=== PATIENT | female | born 1980 | race Hispanic/Latino ===

== ENCOUNTER 2024-11-07 07:30 | Day surgery (SDC) | payer BC ==
[2024-11-07] VITALS (10 sets, daily range): BP systolic 80–109; BP diastolic 44–69; PULSE 56–70; RESP 12–18; TEMP 97.2–97.8
[~2024-11-07] VITALS: Ht 157.5 cm; Wt 68.9 kg
[~2024-11-07 07:30] MED LIST: LISD40CA PO
[2024-11-07] MEDS: 0.9%NACL 1000ML 1,000 ML IV ONE (08:05)
[2024-11-07] MEDS ORDERED: proPOFol 10 MG/ML 20ML VIAL IV ONE ×2 (09:16→09:23)
[2024-11-07] MEDS ORDERED: PANT40TA PO (10:19)
== END 2024-11-07 10:58 | disposition home or self-care (01) ==
LOC: ENDO 07:30 → DAH 07:30 → ENDO 10:58
PROVIDERS: ATTEND Internal Medicine Gastroenterology
DX: R12 Heartburn (principal); K29.50 Unspecified chronic gastritis without bleeding; K31.89 Other diseases of stomach and duodenum; K86.2 Cyst of pancreas; R93.3 Abnormal findings on diagnostic imaging of other parts of digestive tract; K44.9 Diaphragmatic hernia without obstruction or gangrene; K21.9 Gastro-esophageal reflux disease without esophagitis; F41.9 Anxiety disorder, unspecified; F32.A Depression, unspecified; F90.9 Attention-deficit hyperactivity disorder, unspecified type; K59.04 Chronic idiopathic constipation; Z79.899 Other long term (current) drug therapy
CPT/HCPCS: 43259; 84703; 36415; 43239; J7030; J2704 ×2; A4620; A4215 ×2; A4223; A4222; A4221; A4663; A4606; 43237; J3490